=== PATIENT | female | born 1995 | race Caucasian/White ===

== ENCOUNTER 2017-09-10 17:39 | Emergency (ER) | payer MEDICAID ==
[2017-09-10 17:39] VITALS: BMI 26.6
[2017-09-10 17:53] VITALS: BP 121/65; PULSE 63; RESP 18; TEMP 98.8; O2SAT 96
--- NOTE | 2017-09-10 18:18 | ED PDOC ---
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 . Pt states she has not yet made an appointment and would like an US. Pt states "no one takes my insurance". Pt also states she has not began vitamins and would like a prescription. Past Medical History Reviewed: Historical Data, Nursing Documentation, Vital Signs Vital Signs: Last Vital Signs Temp 98.8 F 09/10/17 17:49 Pulse 63 09/10/17 17:49 Resp 18 09/10/17 17:49 BP 121/65 09/10/17 17:49 Pulse Ox 96 09/10/17 18:17 - Medical History PMH: No Chronic Diseases - Surgical History Surgical History: No Surg Hx - Family History Family History: States: Unknown Family Hx - Immunization History Hx Tetanus Toxoid Vaccination: Yes Hx Influenza Vaccination: Yes Hx Pneumococcal Vaccination: No - Home Medications Home Medications: Ambulatory Orders Medication Instructions Recorded Ibuprofen [Motrin Tab] 600 mg PO Q6 PRN #40 tab 05/04/15 oxyCODONE/Acetaminophen [Percocet 1 tab PO Q4H PRN #10 tab 05/04/15 5/325 mg Tab] - Allergies Allergies/Adverse Reactions: Allergies Allergy/AdvReac Type Severity Reaction Status Date / Time No Known Allergies Allergy Verified 05/07/15 20:18 Review of Systems Constitutional: Negative for: Fever, Chills Neurological: Negative for: Weakness, Numbness Psych: Negative for: Anxiety Physical Exam - Reviewed Nursing Documentation Reviewed: Yes Vital Signs Reviewed: Yes - Physical Exam Appears: Positive for: Well, Non-toxic, No Acute Distress Head Exam: Positive for: ATRAUMATIC, NORMAL INSPECTION, NORMOCEPHALIC Skin: Positive for: Normal Color, Warm, DRY Eye Exam: Positive for: Normal appearance ENT: Positive for: Normal ENT Inspection Neck: Positive for: Normal, Painless ROM Cardiovascular/Chest: Positive for: Regular Rate, Rhythm Respiratory: Positive for: CNT, Normal Breath Sounds Gastrointestinal/Abdominal: Positive for: Normal Exam, Bowel Sounds, Soft. Negative for: Tenderness Back: Positive for: Normal Inspection Extremity: Positive for: Normal ROM Neurologic/Psych: Positive for: Alert, Oriented - ECG O2 Sat by Pulse Oximetry: 96 Medical Decision Making Medical Decision Making: Pt has been with sister in ER for approx 4 hours. Prior to registering patient' s sister asks me if I can call the [facility] and make an appointment for patient because patient is 1 month . Pt states she called but it is difficult for them to understand her. I ask patient is she is feeling okay and she states yes. I instruct her to call clinic number or go to office in person. I told patient she should being vitamins and make appointment. Pt than asks if she could have her first routine visit here, in ER approx 1.5 hours prior to registering. Disposition - Clinical Impression Clinical Impression: Normal - Patient ED Disposition Is Patient to be Admitted: No Counseled Patient/Family Regarding: Diagnosis, Need For Followup - Disposition Disposition: Routine/Home Disposition Time: 18:42 Condition: GOOD Additional Instructions: Please begin vitamins. They can be purchased at pharmacy ([facility], [facility], [facility], etc.) Instructions: (ED) Forms: [facility] (Greek)
== END 2017-09-10 18:59 | disposition home or self-care (01) ==
LOC: H.ER 17:39
DX: R42 Dizziness and giddiness (principal); Z3A.01 Less than 8 weeks gestation of pregnancy

== ENCOUNTER 2017-10-09 14:04 | Emergency (ER) | payer MEDICAID ==
[2017-10-09 14:05] VITALS: BMI 26.6
[2017-10-09 14:31] VITALS: BP 108/56; PULSE 84; RESP 20; TEMP 98.5; O2SAT 99
--- NOTE | 2017-10-09 15:14 | ED PDOC ---
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 Patient reports that she is 10 weeks and that she has not started care yet, although she has started vitamins. She reports that this is her third , and that she has two children born vaginally. Patient denies any vaginal bleeding or spotting despite reports from triage that she is complaining of vaginal bleeding, which she attributes to an issue with translation. She also denies any urinary frequency, dysuria, or hematuria, and reports whitish vaginal discharge. PCP: None Abnormal Vaginal Bleeding: No Last Menstral Period: 07/28/2017 : 3 Para: 2 Past Medical History Reviewed: Historical Data, Nursing Documentation, Vital Signs Vital Signs: Last Vital Signs Temp 98.5 F 10/09/17 14:27 Pulse 84 10/09/17 14:27 Resp 20 10/09/17 14:27 BP 108/56 L 10/09/17 14:27 Pulse Ox 99 10/09/17 15:38 - Medical History PMH: No Chronic Diseases - Surgical History Surgical History: No Surg Hx - Family History Family History: States: Hypertension - Social History Current smoker - smoking cessation education provided: No Alcohol: None - Immunization History Hx Tetanus Toxoid Vaccination: Yes Hx Influenza Vaccination: Yes Hx Pneumococcal Vaccination: No - Home Medications Home Medications: Ambulatory Orders Medication Instructions Recorded Ibuprofen [Motrin Tab] 600 mg PO Q6 PRN #40 tab 05/04/15 oxyCODONE/Acetaminophen [Percocet 1 tab PO Q4H PRN #10 tab 05/04/15 5/325 mg Tab] Multivit/Folic Acid/I 1 tab PO DAILY #100 tab 10/09/17 [ Plus] - Allergies Allergies/Adverse Reactions: Allergies Allergy/AdvReac Type Severity Reaction Status Date / Time No Known Allergies Allergy Verified 10/09/17 14:27 Review of Systems ROS Statement: Except As Marked, All Systems Reviewed And Found Negative Genitourinary Female: Positive for: Vaginal Discharge, Pelvic Pain. Negative for: Dysuria, Frequency, Hematuria, Vaginal Bleeding Physical Exam - Reviewed Nursing Documentation Reviewed: Yes Vital Signs Reviewed: Yes - Physical Exam Appears: Positive for: Non-toxic, No Acute Distress (at times laughing with her sister) Head Exam: Positive for: ATRAUMATIC Skin: Positive for: Warm, Dry Gastrointestinal/Abdominal: Positive for: Soft, Tenderness (suprapubic). Negative for: Mass, Distended, Guarding, Rebound Neurologic/Psych: Positive for: Alert, Oriented (x3). Negative for: Motor/ Sensory Deficits - Laboratory Results Result Diagrams: 10/09/17 16:48 - ECG O2 Sat by Pulse Oximetry: 99 (RA) Pulse Ox Interpretation: Normal Medical Decision Making Medical Decision Makin:37 Initial Impression: Pelvic Pain and Differential include but not limited to: Ectopic , Urinary Tract Infection, Threatened Miscarriage, Demise, Dehydration Initial Plan: * ED Urine * ED Urine Dipstick 14:56 * Labs * OB Limited US -Patient is refusing to have pelvic exam performed in ED. Patient advised that this will be an incomplete evaluation in the ED and that there may be diagnoses that can be missed as a result. Patient expresses she understands the risks, and still declines. Sister and patient known well to me from previous visit few months ago, when the sister's was seen for jaundice and they were obstructing appropriate care at that time as well. Reason for visit seems to be changing during evaluation in order to manipulate care. Patient does not appear to be in distress, reports she is concerned about but refusing appropriate workup. They also initially refused to have bloodwork, reporting that she had this done just 2 weeks ago with her doctor. However she earlier reported that she had not started care. She then allowed bloodwork to be done. Her symptoms and history change in order to direct me to simply do an ultrasound. Accession No. : [id number] Patient Name / ID : SHARYN ENRIQUEZ / [id number] Exam Date : 10/09/2017 15:12:40 ( Approved ) Study Comment : Sex / Age : F / 22Y Creator : Camille Spence Dictator : Camille Spence Hand Straightener : Glaze Handler : Camille Spence Approver2 : Report Date : 10/09/2017 15:58:47 My Comment : PROCEDURE: OB Pelvic Ultrasound HISTORY: pelvic pain 10wks preg no care. LMP 07/30/2017. Gestational age by ultrasound 10 weeks 1 day COMPARISON: None available. FINDINGS: UTERUS: Gestational sac: Single intrauterine gestation. Heart rate: 150 seconds bpm. age (Ultrasound estimated): 10 weeks 0 days 0 weeks 5 days Mirna-gestational hemorrhage: None. Date of delivery (Ultrasound estimated) : 05/07/2018 Uterus measures 10.9 x 6.9 x 7.4 cm. Normal in size and appearance. CERVIX: Long 4.4 cm and closed. No cervical abnormality seen. RIGHT OVARY: Measures 2.3 x 0.9 x 2.3 cm. No mass lesion. Normal flow. LEFT OVARY: Measures 3.0 x 1.8 x 2.5 cm. No solid mass. Normal flow. FREE FLUID: None. OTHER FINDINGS: None. IMPRESSION: Single intrauterine gestation with normal cardiac activity whose ultrasound menstrual age is compatible with a 10 week 5 day gestation. Closed cervix. Otherwise unremarkable DW pt findings and plan of care. Scribe Attestation: Documented by Yung Fletcher, acting as a scribe for Vamshi Downs MD Provider Scribe Attestation: All medical record entries made by the Scribe were at my direction and personally dictated by me. I have reviewed the chart and agree that the record accurately reflects my personal performance of the history, physical exam, medical decision making, and the department course for this patient. I have also personally directed, reviewed, and agree with the discharge instructions and disposition. Disposition - Clinical Impression Clinical Impression: Abdominal pain during - Disposition [facility]errals[facility] (CALL TOMORROW TO START CARE.) Disposition: Routine/Home Disposition Time: 17:00 Condition: GOOD Prescriptions: Multivit/Folic Acid/I [ Plus] 1 tab PO DAILY #100 tab Instructions: Abdominal Pain in (ED), at 7 to 10 Weeks (ED ) Forms: [facility] (Vietnamese)
--- NOTE | 2017-10-09 16:00 | US ---
PROCEDURE: OB Pelvic Ultrasound HISTORY: pelvic pain 10wks preg no care. LMP 07/30/2017. Gestational age by ultrasound 10 weeks 1 day COMPARISON: None available. FINDINGS: UTERUS: Gestational sac: Single intrauterine gestation. Heart rate: 150 seconds bpm. age (Ultrasound estimated): 10 weeks 0 days 0 weeks 5 days Mirna-gestational hemorrhage: None. Date of delivery (Ultrasound estimated) : 05/07/2018 Uterus measures 10.9 x 6.9 x 7.4 cm. Normal in size and appearance. CERVIX: Long 4.4 cm and closed. No cervical abnormality seen. RIGHT OVARY: Measures 2.3 x 0.9 x 2.3 cm. No mass lesion. Normal flow. LEFT OVARY: Measures 3.0 x 1.8 x 2.5 cm. No solid mass. Normal flow. FREE FLUID: None. OTHER FINDINGS: None. IMPRESSION: Single intrauterine gestation with normal cardiac activity whose ultrasound menstrual age is compatible with a 10 week 5 day gestation. Closed cervix. Otherwise unremarkable
[2017-10-09 16:53] LABS: BASO % 0.3 % (0.0-2.0); EOS # 0.1 K/uL (0.0-0.7); EOS % 1.1 % (0.0-4.0); LYMPH # 3.3 K/uL (1.0-4.3); LYMPH % 30.4 % (20.0-40.0); MEAN CELL VOLUME 91.2 fl (81.0-99.0); MEAN CORPUSCULAR HEMOGLOBIN 29.8 pg (27.0-31.0); MEAN CORPUSCULAR HGB CONC 32.7 g/dL (33.0-37.0); MEAN PLATELET VOLUME 7.7 fl (7.2-11.7); MONO # 0.8 K/uL (0.0-0.8); MONO % 7.5 % (0.0-10.0); NEUT # 6.6 K/uL (1.8-7.0); NEUT % 60.7 % (50.0-75.0); RED CELL DISTRIBUTION WIDTH 12.4 % (11.5-14.5); WHITE BLOOD COUNT 10.9 K/uL (4.8-10.8)
[2017-10-09 17:04] LABS: ALB/GLOB RATIO 1.5 (1.0-2.1); ALKALINE PHOSPHATASE 33 U/L (38-126); ALT/SGPT 33 U/L (9-52); AST/SGOT 14 U/L (14-36); BILIRUBIN,TOTAL 0.1 mg/dl (0.2-1.3); BLOOD UREA NITROGEN 8 mg/dl (7-17); CALCIUM 9.4 mg/dL (8.4-10.2); CARBON DIOXIDE 25 mmol/L (22-30); CHLORIDE 102 mmol/L (98-107); GFR AFRICAN-AMERICAN > 60; GLUCOSE,RANDOM 88 mg/dL (65-105); SODIUM 136 mmol/l (132-148); TOTAL PROTEIN 7.5 G/DL (6.3-8.2)
== END 2017-10-09 17:13 | disposition home or self-care (01) ==
LOC: H.ER 14:04
DX: O26.891 Other specified pregnancy related conditions, first trimester (principal); Z3A.10 10 weeks gestation of pregnancy

== ENCOUNTER 2018-04-06 18:21 | Emergency (ER) | payer MEDICAID ==
[2018-04-06 19:35] VITALS: BMI 30.4
--- NOTE | 2018-04-06 19:52 | OBHP ---
Datetime: 04/06/2018 19:18 IP Adm Impression: , intrauterine IP Admit Plan: Observation/Evaluation; Discharge home Admit Comment, IP Provider: Pt is a 23 y/o female with IUP 34.6wks (LMP 08/05, JESUS 05/12) prese nting to [facility] with complaints of worsening low back pressure that has been present for months and red uced movement. Denies LOF or VB. Pt arrived from [place] 2 weeks ago. Last sexual activity yester day PNC: Pt initally reports not having any care but then later states she was seen by a doct or 2 months ago. OBHX: 2 prior , FT, no complications PMHX: denies SurgHx: denies Meds: denies Allergies: NKDA Social: Denies habits x3 Vitals:130/65, HR 96, O2 sat 100% General: NAD Cardiopulmonary exam wnl Abdomen: Gravid, NT Cervix:1 /0% effaced /-3 station FHR: 157, reactive A/P: IUP 34.6 weeks with low back pressure . No signs of active labor. NST Reactive. Plan: Katerina, NST. Sonogram for dating labs: HBsAg, Rubella, RPR, HIV, Type and screen Discharge home of no signs of labor. Pt strongly advised to establish OBGYN care . Labor precautions provided. Discussed case with Dr. Morrell. Alexey PGY1. Attending Note: I personally saw and examined Patient with resident and dictated the above plan of care and agree with the above assessment. FHR - Baseline A Provider: 152 EGA AdmitDate IP: 35.6 Vital Signs Provider: Reviewed; Within Normal Limits IP Chief Complaint: Maternal discomfort Dilatation, Provider: 1
[2018-04-07 02:12] VITALS: BP 103/53; PULSE 95; RESP 18; TEMP 98; O2SAT 100
--- NOTE | 2018-04-07 13:24 | US ---
PROCEDURE: Third trimester ultrasound HISTORY: dating COMPARISON: 10/09/2017 1st trimester ultrasound. TECHNIQUE: Standard protocol for this study/examination. FINDINGS: Cephalic presentation. Anterior Placenta. No evidence of abruption or previa Gestational age derived from LMP 34 weeks 6 days. JESUS May 12, 2018. Gestational age derived from the following biometric parameters thirty-five weeks. JESUS 05/11/2018 Biparietal diameter 8.67 cm Head circumference 31.31 cm Abdominal circumference 31.1 cm Femur length 6.77 cm Estimated weight 2563 g Calculated cardiac rate 140 beats per min. IMPRESSION: Thirty-five weeks live intrauterine gestation. Gestational concordance documented. Adequate interval progression compared to the prior study. Concordant results (preliminary interpretation) provided by [facility]. Procedure Completed: 21:25 Preliminary ([facility]) Report: Dictated and Authenticated: 22:32 Final Interpretation: 13:22
== END 2018-04-06 21:52 | disposition home or self-care (01) ==
LOC: H.EROB2 18:21
DX: O26.93 Pregnancy related conditions, unspecified, third trimester (principal); M54.5 Low back pain; Z3A.34 34 weeks gestation of pregnancy; O09.33 Supervision of pregnancy with insufficient antenatal care, third trimester

== ENCOUNTER 2018-05-03 16:10 | Emergency (ER) | payer MEDICAID ==
--- NOTE | 2018-05-03 20:06 | OBHP ---
Datetime: 05/03/2018 17:31 IP Adm Impression: Term, intrauterine ; Intact Membranes IP Admit Plan: Observation/Evaluation Admit Comment, IP Provider: [employer] [facility] [employer] [facility]- [id number] LMP: 08/04/2017 No care 23 yo Bengali speaking at 38.6 wks based on LMP with no care is presenting with c/o a bdominal _ back pain 5/10 in nature since yesterday. Patient is unsure if she is having contractions. Patient denied any vaingal bleeding, loss of fluid. Minimal movement as per patient. Last sexu al activity was 3 days ago. Patient was seen here for similar complaints. An ultrasound was done at that time which d ated her JESUS as 05/11/2018. OBGYNhx: x2 PMH: none Famhx: neg Sochx: no Tobacco, EtOH or drugs Surghx: neg Allergies: NKA Meds: none ROS: neg for headache, cp, sob or n/v/d Vitals: BP: 122/68 HR: 68 SPO2: 98% PE: Gen: well appearing female in no acute distress Cardio: s1s2 no murmurs Resp: clear to auscultation B/L Abd:BS+ FHR: 140's, mod variability Cervix: 1-cm, 0%, -3 Ext: calves nontender A/P:23 yo Bengali speaking with abdominal/back pain 1. FHR monitoring reactive, ultrasound- cephalic presentation; will continue to observe. Patient seen and examined with Dr. Grzegorz Kurtz PGY-1 Addendum: I saw and examined patient at presentation and followup. Pt observed at [facility] for 2.5 hours. No c ervical change and no contractions. FHT reactive. Pt given contact information for [facility] clinic to desmond zhu this week for care. I discussed with patient the importance of followup. Discussed plan with patient and all patient questions answered. Pediatric Nephrologist service used. Grzegorz Abdomen - PN: Normal Back - PN: Normal Lungs - PN: Normal Heart - PN: Normal General - PN: Normal FHR - Baseline A Provider: 140 Gestation - Est Wks by US: 38.6 IP Hx Assessment: No Care EGA AdmitDate IP: 39.5 Vital Signs Provider: Reviewed IP Chief Complaint: Maternal discomfort NICHD Variability Prov Fetus A: Moderate 6-25bpm NICHD Accel Fetus A IP Provider: 15X15 NICHD Decel Fetus A IP Provider: None Dilatation, Provider: 1-2 Effacement, Provider: 0 Station, Provider: -3
[2018-05-04 10:45] VITALS: BP 112/71; PULSE 88; RESP 18; TEMP 98.4
== END 2018-05-03 20:50 | disposition home or self-care (01) ==
LOC: H.EROB2 16:10
DX: O26.93 Pregnancy related conditions, unspecified, third trimester (principal); R10.2 Pelvic and perineal pain; M54.9 Dorsalgia, unspecified; Z3A.38 38 weeks gestation of pregnancy; O09.33 Supervision of pregnancy with insufficient antenatal care, third trimester

== ENCOUNTER 2018-05-10 23:10 | Emergency (ER) | payer MEDICAID ==
--- NOTE | 2018-05-11 01:13 | OBHP ---
Datetime: 05/11/2018 00:50 IP Adm Impression: Term, intrauterine ; No Active Labor IP Admit Plan: Observation/Evaluation; Discharge home Admit Comment, IP Provider: @39.6 weeks gestational age presents to OB ED complaining of contra ctions. Patient denies any vaginal bleeding or leakage of fluids. Patient reports good movement . Patient reports having care and [place], these records are not available for review. Only ul trasound available for review reported JESUS 05/12/2018. Past medical history denies Past surgical history denies Medications vitamins No known drug allergies Obstetrical history 2 Social history denies tobacco, drugs, alcohol Assessment: @39 weeks 6 days gestational age. No evidence of labor at this time. heart tracing darvin kowalski 1. Plan: Patient discharged home with labor precautions. Patient scheduled for induction of labor at 41 wee ks gestational age. Patient given labor precautions and kick count precautions. Communication done vi a welfare investigator services. Pelvic Type - PN: Adequate Extremities - PN: Normal Abdomen - PN: Normal Neurologic - PN: Normal HEENT - PN: Normal General - PN: Normal FHR - Baseline A Provider: 120s-130s Contraction Comments Provider: occasional Vital Signs Provider: Reviewed; Within Normal Limits IP Chief Complaint: Uterine contractions NICHD Variability Prov Fetus A: Moderate 6-25bpm NICHD Accel Fetus A IP Provider: 15X15 FHR Category Provider Fetus A: Category I NICHD Decel Fetus A IP Provider: None Dilatation, Provider: 1 Effacement, Provider: 50 Station, Provider: -3 Genitourinary Exam: Normal
[2018-05-11 08:16] VITALS: BP 137/72; PULSE 67; RESP 20; TEMP 98.7; O2SAT 99
== END 2018-05-11 01:00 | disposition home or self-care (01) ==
LOC: H.EROB2 23:10
DX: O26.93 Pregnancy related conditions, unspecified, third trimester (principal); R10.2 Pelvic and perineal pain; Z3A.39 39 weeks gestation of pregnancy; O47.1 False labor at or after 37 completed weeks of gestation

== ENCOUNTER 2018-05-11 14:16 | Inpatient (IN) | payer MEDICAID ==
[2018-05-11 14:38] VITALS: BMI 29.7
[2018-05-11] MEDS ORDERED: Oxytocin 30 UNITS in Sodium Chloride 0.9% 500 ML IV ONE (14:39)
[2018-05-11] MEDS ORDERED: Lactated Ringer's 1,000 ML IV SCH ×2 (15:15→16:30)
[2018-05-11] MEDS ORDERED: OXYTOCIN/0.9 % NS 20 UNIT/1,000 ML BAG IV SCH (15:15)
[2018-05-11 15:16] LABS: BASO # 0.1 K/uL (0.0-0.2); BASO % 0.5 % (0.0-2.0); EOS # 0.1 K/uL (0.0-0.7); EOS % 0.7 % (0.0-4.0); LYMPH # 2.4 K/uL (1.0-4.3); LYMPH % 23.7 % (20.0-40.0); MEAN CELL VOLUME 91.4 fl (81.0-99.0); MEAN CORPUSCULAR HEMOGLOBIN 31.3 pg (27.0-31.0); MEAN CORPUSCULAR HGB CONC 34.2 g/dL (33.0-37.0); MEAN PLATELET VOLUME 9.7 fl (7.2-11.7); MONO # 0.9 K/uL (0.0-0.8); MONO % 8.8 % (0.0-10.0); NEUT # 6.8 K/uL (1.8-7.0); NEUT % 66.3 % (50.0-75.0); RBC 4.16 Mil/uL (3.80-5.20); RED CELL DISTRIBUTION WIDTH 12.8 % (11.5-14.5); WHITE BLOOD COUNT 10.3 K/uL (4.8-10.8)
[2018-05-11] MEDS ORDERED: Lidocaine Hydrochloride 10 ML INJ ONE (15:28)
[2018-05-11] MEDS ORDERED: Oxycodone/Acetaminophen 5/325 mg Tab PO PRN ×5 (16:54→20:27)
[2018-05-11] MEDS ORDERED: Benzocaine/Menthol SPRAY TOP PRN ×3 (16:54→20:27)
--- NOTE | 2018-05-11 16:54 | OBDS ---
MATERNAL INFORMATION Provider Comments: of live male over intact perineum, NIRMALA presentation, 06/22, followed by shoulders and rest of infant, mouth and nose suctioned, placed on mother's chest, cord clampe d and cut, cord blood obtained, placenta delivered spontaneously, [id number], fundus firm, no lacerati ons noted LABOR SUMMARY EDC: 05/11/2018 00:00 No. Babies in Womb: 1
[2018-05-11 17:09] VITALS: TEMP 98.3
--- NOTE | 2018-05-11 17:17 | OBADHP ---
Datetime: 05/11/2018 14:50 Admit Comment, IP Provider: 23 y/o F at 40 weeks GA, JESUS 05/11/18 according to pt, complaining of painful uterine CTX's. Pain is severe, aggravated the most since 10 am. Pt reports bits of LOF wi th little lines of blood. FM present. Pt has daniel from [place] recently, no pre-jose records are avail able. An US stating JESUS is 05/12/18 is the only information available. NKA Meds: PNV PN Care: in [place] PN Labs: None available OBHx: 2x NVD at full term in 2012 and 2014, One born in the [place] and the other in [place]. No complic ations. Epidural anesthesia in her 2nd . PMHx: denied PSHx: denied FHx: NC SHx: No tobacco, alcohol or rec drugs A/P 23 y/o F with IUP at 40 weeks GA, in active labor. -Admit to Labor and Delivery. -Initiate Labor protocol. Case discussed with DR Lopez, OB-Hospitalist environmental programs specialist. GTolentino PGY-[address] Lopez: I have evaluated the patient independently and I agree with the above Extremities - PN: Normal Abdomen - PN: Normal Back - PN: Normal Lungs - PN: Normal Heart - PN: Normal Thyroid - PN: Normal Neurologic - PN: Normal HEENT - PN: Normal General - PN: Normal FHR - Baseline A Provider: 130 IP Hx Assessment: The History has been Reviewed and is Current IP Chief Complaint: Uterine contractions NICHD Variability Prov Fetus A: Moderate 6-25bpm NICHD Accel Fetus A IP Provider: 15X15 FHR Category Provider Fetus A: Category I Dilatation, Provider: 8 Effacement, Provider: 90 Station, Provider: -2 EGA AdmitDate IP: 40.0 IP Adm Impression: Term, intrauterine IP Admit Plan: Admit to unit; Initiate labor protocol Datetime: 05/11/2018 00:50 Pelvic Type - PN: Adequate Contraction Comments Provider: occasional Vital Signs Provider: Reviewed; Within Normal Limits NICHD Decel Fetus A IP Provider: None Genitourinary Exam: Normal Datetime: 05/03/2018 17:31 Gestation - Est Wks by US: 38.6
[2018-05-12 06:55] LABS: OPIATES, UR NEGATIVE (NEGATIVE)
[2018-05-12 07:02] LABS: BARBITURATES, UR NEGATIVE (NEGATIVE); BENZODIAZEPINES, UR NEGATIVE (NEGATIVE); PHENCYCLIDINE, UR NEGATIVE (NEGATIVE)
[2018-05-12 07:24] LABS: BASO % 0.3 % (0.0-2.0); EOS # 0.1 K/uL (0.0-0.7); EOS % 0.7 % (0.0-4.0); HEMOGLOBIN 10.8 g/dL (12.0-16.0); LYMPH # 2.5 K/uL (1.0-4.3); LYMPH % 23.3 % (20.0-40.0); MEAN CELL VOLUME 91.5 fl (81.0-99.0); MEAN CORPUSCULAR HEMOGLOBIN 31.2 pg (27.0-31.0); MEAN CORPUSCULAR HGB CONC 34.1 g/dL (33.0-37.0); MEAN PLATELET VOLUME 9.4 fl (7.2-11.7); MONO # 0.8 K/uL (0.0-0.8); MONO % 7.6 % (0.0-10.0); NEUT # 7.3 K/uL (1.8-7.0); NEUT % 68.1 % (50.0-75.0); RBC 3.45 Mil/uL (3.80-5.20); RED CELL DISTRIBUTION WIDTH 12.9 % (11.5-14.5); WHITE BLOOD COUNT 10.8 K/uL (4.8-10.8)
[2018-05-12] MEDS: Multivitamin With Minerals Tab PO SCH (08:34)
[2018-05-12] MEDS ORDERED: Multivitamin With Minerals Tab PO SCH (09:00)
--- NOTE | 2018-05-13 07:12 | OBPPN ---
Datetime: 05/12/2018 07:40 PP Pain Prov: Within normal limits PP Nausea Prov: Denies PP Flatus Prov: Yes PP BM Prov: No PP Heart Prov: Normal PP Lungs Prov: Normal PP Abdomen/Uterus Prov: Normal PP Lochia Prov: Normal PP Extremities Prov: Normal PP C/S Incision Prov: Not Applicable PP Progress Prov: Normal PP Impression Prov: Normal progression PP Plan Prov: Continue present management PP Progress Note Prov: Cyra [id number]- Tamazight S: Pt is a 23 yo 40wk s/p on 05/11/18 PPD 1 no care, from [place]. Seen and exa mined at bedside this am. Patient denies any significant overnight events. Reports mild pelvic pain which is controlled with pain medicine. Hasnt ambulated yet. Breast feeding without difficulty. Tole rating regular diet. Lochia is similar to menses. Hasnt voided this am yet, Patient has not had a bowel movement, but is passing gas per rectum. Denies fever/chills, diarrhea, nausea/vomiting, CP/SOB , Lightheadedness. O: BP:107/75, HR:96, T:98.2F CBC-10.8/31.5, blood type: O+, rubella: Unknown- ordered IGG Ab, Ordered all other PNL's as pt did not have care in [place] PHYSICAL EXAM: GEN: AAOx3, Resting comfortably in bed, NAD HEENT: NCAT, White sclera, pink conjunctiva, oral mucosa moist. LUNGS: CTA B/L, no wheezing, rhonchi, or rales, B/L chest rise CVS: RRR, S1, S2, No murmurs, rubs, gallops ABD: ND, +BS, firm fundus @ umbilical level. Soft, appropriate TTP EXT: no edema, negative Ashish's sign, calves non tender NEURO/Psych: no gross focal deficit, preserved affect and mood. A/P 23y/o post , had a on 05/11/18 @ 16:35. Pt afebrile, tolerating pain with medica tion, tolerating regular diet. Encouraged breast feeding and ambulation Ibuprofen 600mg mild pain PNV 1 tab po daily Post op contraception- OCP F/U 4-6 weeks for post- visit at the [facility] Acacia Chua M.D. PGY-1 Patient was seen and case discussed with Dr. Lopez [facility] addendum: pt seen _ examined by me. agree w/ above assessment and plan. pt declines cirumcision for son. IP PP Procedures: None Vital Signs Provider PP: Reviewed; Within Normal Limits Signature: verna
--- NOTE | 2018-05-13 07:33 | OBPPN ---
Datetime: 05/13/2018 07:27 PP Pain Prov: Within normal limits PP Abdomen/Uterus Prov: Normal PP Lochia Prov: Normal PP Extremities Prov: Normal PP Progress Prov: Normal PP Impression Prov: Normal progression PP Plan Prov: Discharge PP Progress Note Prov: PPD 2 s/p , doing well, breast and bottle feeding Discharge home Vital Signs Provider PP: Reviewed; Within Normal Limits
[2018-05-13] MEDS: Multivitamin With Minerals Tab PO SCH (09:06)
[2018-05-13 22:26] VITALS: BP 115/61; PULSE 78; RESP 20; O2SAT 100
[2018-05-14 10:08] LABS: RUBELLA AB (IGG) 10.1 index
== END 2018-05-13 17:00 | disposition home or self-care (01) | DRG 373 ==
LOC: H.EROB2 14:16 → H.L&D 14:38 → H.OB/GYN 20:25
PROVIDERS: ADMIT Obstetrics & Gynecology; ATTEND Obstetrics & Gynecology
PROC: 10E0XZZ Delivery of Products of Conception, External Approach (ICD-10-PCS; principal; 2018-05-11)
PROC: 4A1HXCZ Monitoring of Products of Conception, Cardiac Rate, External Approach (ICD-10-PCS; 2018-05-11)
DX: O48.0 Post-term pregnancy (principal); Z3A.40 40 weeks gestation of pregnancy; Z37.0 Single live birth